=== PATIENT | female | born 1945 | race Caucasian/White ===

== ENCOUNTER 2022-04-18 12:31 | Emergency (ER) | payer MEDICARE ==
--- NOTE | 2022-04-18 13:03 | ED Physician Documentation ---
History of Present Illness - Stated complaint Stated Complaint: INJURED RT ANKLE - Chief complaint Chief Complaint: Trauma Ext - History obtained from History obtained from: Patient - History of Present Illness Timing: Today Pain level max: 8 Pain level now: 6 - Additonal information Additional information: Patient is a 76-year-old female who presents to the emergency department after a trip and fall outside. She injured her right ankle. She has been able to walk on it since the event occurred. She states that it is painful with walking. She also complains of left rib pain. She did not strike her head. No loss of consciousness. Worse with movement, better with rest. No neck or back pain. She is not on blood thinners. Review of Systems Constitutional: denies: Fever, Chills GI: denies: Nausea, Vomiting, Diarrhea Skin: denies: Rash Musculoskeletal: denies: Neck pain, Back pain Neurologic: denies: Headache PD PAST MEDICAL HISTORY - Past Medical History Past Medical History: No - Present Medications Home Medications: Ambulatory Orders Medication Instructions Recorded Confirmed HYDROcod/ACETAM 5/325 [[place] 5/325] 1 - 2 ea PO Q6H PRN #14 tablet 04/18/22 - Allergies Allergies/Adverse Reactions: Allergies Allergy/AdvReac Type Severity Reaction Status Date / Time No Known Drug Allergies Allergy Verified 04/18/22 12:42 - Living Situation Living Situation: reports: With family Living Arrangement: reports: At home - Social History Does the pt smoke?: No Does the pt have substance abuse?: No PD ED PE NORMAL - Vitals Vital signs reviewed: Yes - General General: Alert and oriented X 3, No acute distress - HEENT HEENT: Moist mucous membranes - Neck Neck: Supple, no meningeal sign - Cardiac Cardiac: RRR, Strong equal pulses - Respiratory Respiratory: No respiratory distress, Clear bilaterally, Other (TTP over the L ribs mid axillary line, no crepitus.) - Abdomen Abdomen: Soft, Non tender, Non distended - Back Back: No spinal TTP - Derm Derm: Warm and dry - Extremities Extremities: Other (mild edema R ankle, no deformity TTP lateral malleolus. NVI) - Neuro Neuro: Alert and oriented X 3 - Psych Psych: Normal mood, Normal affect Results - Vitals Vitals: Vital Signs - 24 hr 04/18/22 04/18/22 12:38 15:10 Temperature 36.2 C L Heart Rate 101 H 81 Respiratory 16 18 Rate Blood Pressure 131/71 H 125/83 H O2 Saturation 99 95 Oxygen O2 Source Room air - Rads (name of study) Right ankle x-ray Radiology: Final report received, See rad report Chest without CT Radiology: Final report received, See rad report PD Medical Decision Making - ED course Complexity details: reviewed results, re-evaluated patient, considered differential, d/w patient ED course: No acute findings on ankle x-ray. Placed in a gel splint for comfort. CT chest shows a possible left fifth rib fracture. Pain well controlled. No pneumothorax or hemothorax. Will prescribe pain medication for home. No indication for head CT or cervical spine CT. Patient counseled regarding signs and symptoms for which I believe and urgent re-evaluation would be necessary. Patient with good understanding of and agreement to plan and is comfortable going home at this time This document was made in part using voice recognition software. While efforts are made to proofread this document, sound alike and grammatical errors may occur. Departure - Departure Disposition: 01 Home, Self Care Clinical Impression: Right ankle sprain Qualifiers: Encounter type: initial encounter Involved ligament of ankle: unspecified ligament Qualified Code(s): S93.401A - Sprain of unspecified ligament of right ankle, initial encounter Left rib fracture Qualifiers: Encounter type: initial encounter Rib fracture type: single rib Fracture type: closed Qualified Code(s): S22.32XA - Fracture of one rib, left side, initial encounter for closed fracture Condition: Good Instructions: ED Sprain Ankle W X Ray, ED Contusion Vs Minor Fx Rib Follow-Up: your,doctor in 1 week [Other] Prescriptions: HYDROcod/ACETAM 5/325 [[place] 5/325] 1 - 2 ea PO Q6H PRN #14 tablet PRN Reason: Pain Comments: Your prescription was sent to [facility] in [place]. Your ankle x-ray does not show any evidence of fracture. Your chest CT does show a possible single rib fracture. Please follow-up with your doctor for further care. Return if you worsen. I am prescribing a short course of narcotic pain medication for you. These are potentially dangerous and addictive medications that should be used carefully. These medications may constipate you. Take an icwo-elx-yzmbouv stool softener (docusate) twice daily with plenty of water while taking these medications. If you go 24 hours without a bowel movement, take vclr-zla-tzvgyry miralax, per package instructions. Do not drink or drive while taking these medications. If you received narcotic or sedating medications while in the emergency department, do not drive for 24 hours. Store this medication in a safe, secure place and out of reach of children. It is a violation of federal law to give or sell this medication to another person or to use in a manner other than prescribed. The ED will not refill narcotic prescriptions, including prescriptions lost or stolen. To dispose of unwanted medications: 1. [facility] at [address] in [place] has a medication drop box. They accept prescription medications (in pill form) Wednesday through Wednesday 9:00 a.m. to 5:00 p.m. 2. The [facility] [employer] accepts prescription medications (in pill form only) for disposal year round. Call for more informatio n. 3. Contact the [facility] for the next [employer] sponsored prescription drug collection event. , [phone], or [phone]; Discharge Date/Time: 04/18/22 15:10
[2022-04-18] MEDS ORDERED: oxyCODONE 5 MG TABLET PO STA (13:18)
--- NOTE | 2022-04-18 13:41 | XRAY Report ---
PROCEDURE: Ankle 3 View RT INDICATIONS: R ankle pain s/p fall TECHNIQUE: 3 views of the ankle were acquired. COMPARISON: None FINDINGS: Bones: Scattered degenerative changes. Age-indeterminate bone fragments, for example adjacent to the medial malleolus. Plantar enthesopathy. Osseous demineralization. Soft tissues: No suspicious calcifications. IMPRESSION: No acute radiographic abnormality. Degenerative changes and age-indeterminate bone fragments are pres ent. If there is high concern for occult injury, consider repeat radiography or cross-sectional imagi ng. Reviewed by: Domo Ahmadi MD on 04/18/2022 12:40 PM [facility] Approved by: Domo Ahamdi MD on 04/18/2022 12:40 PM [facility] Station ID: [id number]
--- NOTE | 2022-04-18 14:24 | CT Report ---
PROCEDURE: CHEST WO INDICATIONS: L rib pain s/p fall TECHNIQUE: Noncontrast 1mm axial images were acquired from the pulmonary apices to the posterior costophrenic an gles. Axial 5 mm soft tissue kernel reconstructions were performed as well as 8 mm axial MIP and cor onal and sagittal 5 mm reformations. For radiation dose reduction, the following was used: automate d exposure control, adjustment of mA and/or kV according to patient size. COMPARISON: None FINDINGS: Image quality: Excellent Lungs and pleura: No pneumothorax or hemothorax. Scattered scarring/atelectasis. No dense consolidati on. Mediastinum, heart, and esophagus: Nonspecific distal esophageal wall thickening. No mediastinal kimmy jordyn. Heart size is within normal limits. No pathologic adenopathy by size criteria. Chest wall and thyroid: Unremarkable Upper abdomen: Limiting evaluation on this study, no gross abnormality. Bones: Scattered degenerative changes of the left lower lobes are not fully included in the field-of- view. There might be a buckle deformity of the left lateral fifth rib. IMPRESSION: Possible buckle deformity of the left lateral fifth rib. No displaced fractures otherwise seen. Howev er, the left lower ribs are not within the field of of this study. Correlate with point tenderness. N o pneumothorax or hemothorax. Other findings as above Reviewed by: Domo Ahmadi MD on 04/18/2022 1:23 PM [facility] Approved by: Domo Ahmadi MD on 04/18/2022 1:23 PM [facility] Station ID: [id number]
[2022-04-18 15:11] VITALS: BP 125/83
== END 2022-04-18 15:10 | disposition home or self-care (01) ==
LOC: ED 12:31
DX: S93.401A Sprain of unspecified ligament of right ankle, initial encounter (principal); S22.32XA Fracture of one rib, left side, initial encounter for closed fracture; W01.0XXA Fall on same level from slipping, tripping and stumbling without subsequent striking against object, initial encounter
CPT/HCPCS: 71250; 73610; 99284; A9270